=== PATIENT | male | born 1965 | race Caucasian/White ===

== ENCOUNTER 2017-02-20 18:20 | Emergency (ER) | payer OTHER ==
[2017-02-20 19:25] LABS: PLATELET COUNT 206 x10^3mcL (130-400); RED CELL DISTRIBUTION WIDTH 12.5 % (11.5-14.5)
[2017-02-20 19:27] LABS: BASOPHIL % 2.7 % (0-2)
[2017-02-20 19:45] LABS: CALCIUM 8.8 mg/dL (8.5-10.1); CARBON DIOXIDE 32.8 mmol/L (21-32); CHLORIDE SERUM 102 mmol/L (98-107); CREATININE SERUM 1.2 mg/dL (0.7-1.3); GFR1 > 60 mL/min; GLUCOSE SERUM 126 mg/dL (74-106); POTASSIUM SERUM 3.6 mmol/L (3.5-5.1); SODIUM SERUM 140 mmol/L (136-145)
[2017-02-20 19:51] LABS: ALBUMIN 3.9 g/dL (3.4-5.0); ALKALINE PHOSPHATASE 85 U/L (46-116); ALT/SGPT 43 U/L (16-63); AMYLASE 45 U/L (25-115); AST/SGOT 27 U/L (15-37); BILIRUBIN TOTAL 0.8 mg/dL (0.20-1.00); LIPASE 104 IU/L (73-393); TOTAL PROTEIN, SERUM 7.8 g/dL (6.4-8.2)
[2017-02-20 20:12] LABS: UA SPECIFIC GRAVITY >=1.030 (1.005-1.035); microscopic required? YES; urine erythrocyte 3+ (NEGATIVE)
[2017-02-20 20:22] LABS: AMPHETAMINE QUAL UR POSITIVE (NEG <=1000)
[2017-02-20 20:35] VITALS: BP 117/87
== END 2017-02-20 20:35 | disposition home or self-care (01) ==
LOC: ED 18:20
PROVIDERS: Emergency Medicine
DX: N20.0 Calculus of kidney (principal); J45.909 Unspecified asthma, uncomplicated; Z88.0 Allergy status to penicillin
CPT/HCPCS: J1885; J2270; J2405; J7120